=== PATIENT | female | born 1965 | race Caucasian/White ===

== ENCOUNTER 2024-04-08 14:06 | Emergency (ER) | payer OTHER, SELFPAY ==
[2024-04-08 14:10] VITALS: BP 135/82
[2024-04-08 14:38] LABS: % Basophils 0.7 % (0-2); % Eosinophils 1.3 % (0-6); % Immature Granulocytes 0.1 % (0-0.5); % Lymphocytes 30.6 % (20.5-51.1); % Monocytes 7.2 % (1.7-9.3); % Neutrophils 60.1 % (42.2-75.2); Absolute Basophils 0.1 10^3/uL (0-0.2); Absolute Eosinophils 0.1 10^3/uL (0-0.7); Absolute Lymphocytes 2.1 10^3/uL (1.2-3.4); Absolute Monocytes 0.5 10^3/uL (0.1-0.6); Absolute Neutrophils 4.2 10^3/uL (1.4-6.5); Hematocrit 41.7 % (37.0-47.0); Hemoglobin 14.1 g/dL (12.0-16.0); Mean Corp Hgb Conc. 33.8 g/dL (33.0-37.0); Mean Corpuscular Hgb 32.5 pg (27.0-31.0); Mean Corpuscular Volume 96.1 fL (81.0-99.0); Mean Platelet Volume 9.6 fL (7.4-10.4); Nucleated Red Blood Cells % 0 %; Platelet Count 255 10^3/uL (130-400); Red Blood Cell Count 4.34 10^6/uL (4.20-5.40); White Blood Cell Count 6.9 10^3/uL (4.8-10.8)
[2024-04-08 14:43] LABS: ALT (SGPT) 25 U/L (0-35); AST (SGOT) 27 U/L (14-36); Albumin 5.1 g/dl (3.5-5.0); Alkaline Phosphatase 114 U/L (38-126); Blood Urea Nitrogen 12 mg/dl (7-17); Calcium 10.2 mg/dl (8.4-10.2); Carbon Dioxide 29 mmol/L (22-30); Chloride 100 mmol/L (98-107); Glucose 102 mg/dl (70-99); Potassium 3.9 mmol/L (3.5-5.1); Sodium 140 mmol/L (135-145); Total Bilirubin 0.5 mg/dl (0.2-1.3); Total Protein 7.8 g/dl (6.3-8.2); eGFR > 60.00
--- NOTE | 2024-04-08 18:03 | ED.GENMED ---
History of Present Illness
General
Chief Complaint: Dizziness
Source: patient
Time Seen by Provider: 04/08/24 17:54
History of Present Illness
History of Present Illness:
58-year-old female presents to the emergency room for evaluation because she has been feeling lightheaded and just off for the past few days. She denies a sense of movement or vertigo but just feels woozy or lightheaded. No focal weakness numbness
or tingling. She has a normal appetite. She denies sore throat, cough, shortness of breath. She does endorse having a headache which is generalized. Nothing seems to make it better or worse. She only takes medication for cholesterol which she
has been taking for years. She denies chest pain.
Past History
Past History
ED Past Medical History: None
ED Past Surgical History: None
Social History
Tobacco: Non-smoker
Alcohol: Occasional
Drug: None
Personal: Single
Employment: Employed
Family History
Family History: Other (Noncontributory)
Phy Exam
Physical Exam
Physical Exam:
General: Awake, Alert, Oriented X3. No acute distress.
Vitals: unremarkable
Head: Atraumatic
Eyes: Pupils equal, EOMI
Throat: Airway intact, no exudates
Neck: Trachea midline
Lungs: Clear and equal b/l
Heart: Regular rate, no murmurs
Neuro: Nonfocal
Skin: Warm, dry, no rash
Extremities: pulses equal b/l, no edema
Course
Orders/Labs/Results
Orders:
Orders
04/08/24 14:12
Electrocardiogram (*1) Urgent
Reason for Study: Vertigo / Dizzy
EKG- Treatment ONCE
04/08/24 14:22
Complete Blood Count/With Diff Urgent
Comprehensive Metabolic Panel Urgent
04/08/24 18:02
CT Head W/o Iv Contrast Urgent
Comment:
Reason For Exam: headache, lightheaded
Abnormal Lab Results
04/08/24
14:22
MCH 32.5 H pg
(27.0-31.0)
Glucose 102 H mg/dl
(70-99)
Albumin 5.1 H g/dl
(3.5-5.0)
04/08/24 14:22
04/08/24 14:22
Vital Signs
Initial and Last Documented VS:
Initial Vital Signs
Temp Pulse Resp BP Pulse Ox
98.3 F 84 18 135/82 99
04/08/24 14:10 04/08/24 14:10 04/08/24 14:10 04/08/24 14:10 04/08/24 14:10
Last Documented Vital Signs
Temp Pulse Resp BP Pulse Ox
98.3 F 82 25 117/65 97
04/08/24 14:10 04/08/24 19:03 04/08/24 19:03 04/08/24 19:03 04/08/24 19:03
MDM/Problems Addressed
Differential Diagnosis Includes:
dehydration, heart rhythm abnormality, anemia, vertigo
MDM/Problems Addressed:
Patient presents for evaluation of lightheadedness. Labs are reassuring. CT shows no acute abnormalities. Her neurologic exam is nonfocal. She does not have true vertigo. There is no nystagmus on exam. Unclear the etiology of her symptoms but
there is no evidence of an unstable process here in the emergency room. Patient wonders if this is related to increased stress in her life which certainly a possibility. Recommend she follow-up with her primary care doctor as an outpatient.
*Radiology
Radiology exam reviewed: radiology read reviewed
*Pulse Oximetry
Patient hypoxic: no
*EKG
Interpreted by ED Provider?: Yes
Heart Rate: 75
Rate: normal
Rhythm: sinus
[place]: normal axis
Interval: normal interval
QRS Pattern: normal QRS
Ischemia: non-specific ST changes
*Topographical Surveyor Interpretation
Rate: normal
Interpretation: normal
Rhythm: sinus
*Critical Care Note
Total Time (30-74mins, 75-104mins- exclusive of procedures): Not Applicable
ED Attending Note
-
Portions of this chart may have been created with voice recognition software.� Occasional wrong word or��sound alike� substitutions may have occurred due to the inherent limitations of voice recognition software.
Discharge Plan
Departure
Patient Disposition: Home (Routine Discharge)
Date of Disposition: 04/08/24
Time of Disposition: 19:45
Patient with high blood pressure during this ER visit?: No
Condition: Good
Discharge Problem:
Dizziness
Instructions: Dizziness, Nonvertigo, (DC)
Referrals:
Rush Rushing MD [Family Provider] -
Activity Restrictions/Additional Instructions:
Please follow up with your primary care provider. Return for any focal weakness, numbness or feel you are gettng worse.
Interventions
Interventions:
*Risk Screen - Suicide Last Done: 04/08/24 14:10
*General Assessment Last Done: 04/08/24 14:10
*Neglect/Abuse Screening Last Done: 04/08/24 14:10
*ED COVID-19 Vaccine History Last Done: 04/08/24 14:10
*Nursing Disposition Last Done: 04/08/24 20:09
ED- Neurological Assessment Last Done: 04/08/24 18:47
ED Swallowing Screen Last Done: 04/08/24 18:47
Discharge Date and Time
Discharge Date/Time: 04/08/24 20:15
Print Language: BELIZEAN
[2024-04-08 18:48] VITALS: BP 123/70
[2024-04-08 19:03] VITALS: BP 117/65
== END 2024-04-08 20:15 | disposition home or self-care (01) ==
LOC: EMR 14:06
PROVIDERS: Emergency Medicine; EMERGENCY PHYSICIAN Emergency Medicine; FAMILY PHYSICIAN Family Medicine
DX: R42 Dizziness and giddiness (principal); R51.9 Headache, unspecified
CPT/HCPCS: 99284; 70450; 80053; 85025; 93005